=== PATIENT | male | born 2000 | race Two or more races ===

== ENCOUNTER 2024-02-28 16:43 | Emergency (ER) | payer OTHER ==
[~2024-02-28] VITALS: Ht 177.8 cm; Wt 74.8 kg
[2024-02-28] MEDS ORDERED: KETOROLAC TROMETHAMINE 60 MG VIAL IM ONE ×2 (17:29→17:30)
[2024-02-28] MEDS ORDERED: DICLOFENAC SODI50 MG PO (19:23)
== END 2024-02-28 20:43 | disposition home or self-care (01) ==
LOC: ER 16:44
DX: S93.492A Sprain of other ligament of left ankle, initial encounter (principal); X58.XXXA Exposure to other specified factors, initial encounter; Y93.89 Activity, other specified; Y92.89 Other specified places as the place of occurrence of the external cause; Y99.8 Other external cause status; M25.572 Pain in left ankle and joints of left foot

== ENCOUNTER 2024-07-22 14:09 | Outpatient (CLI) | payer OTHER ==
[~2024-07-22 14:09] MED LIST: DICLOFENAC SODI50 MG PO
== END 2024-07-22 14:32 | disposition home or self-care (01) ==
LOC: RAD 14:09
PROVIDERS: ATTEND Orthopaedic Surgery
DX: M25.572 Pain in left ankle and joints of left foot (principal); M79.672 Pain in left foot